=== PATIENT | female | born 1985 | race Two or more races ===

== ENCOUNTER 2019-07-13 13:10 | Observation (INO) | payer MEDICAID, OTHER ==
[~2019-07-13] VITALS: Ht 152.4 cm; Wt 48.5 kg
[2019-07-13] MEDS: TERBUTALINE SULFATE 1 MG/ML 1ML VIAL SC ONE (15:00)
[2019-07-13] MEDS ORDERED: LACTATED RINGER'S 1,450 ML IV ONE (15:00)
[2019-07-13] MEDS ORDERED: LACTATED RINGER'S 1,000 ML IV ONE (16:15)
== END 2019-07-13 17:00 | disposition home or self-care (01) | DRG 566 ==
LOC: LDRP 13:10
PROVIDERS: ADMIT Specialist; ATTEND Specialist
DX: O26.893 Other specified pregnancy related conditions, third trimester (principal); N89.8 Other specified noninflammatory disorders of vagina; Z3A.28 28 weeks gestation of pregnancy
CPT/HCPCS: 59025; 76805; 81002; 96372; G0378; J3105